=== PATIENT | male | born 1960 | race Caucasian/White ===

== ENCOUNTER 2019-06-11 16:59 | Emergency (ER) | payer SELFPAY ==
[~2019-06-11] VITALS: Ht 185.4 cm; Wt 80.7 kg
[2019-06-11] MEDS ORDERED: SODIUM CHLORIDE 0.9% 1000ML 1,000 ML IV SCH (18:45)
[2019-06-11] MEDS ORDERED: DICYCLOMINE HCL 20 MG TAB PO ONE (18:45)
[2019-06-11] MEDS ORDERED: SODIUM CHLORIDE 0.9% 1000ML 1,000 ML ONE (18:53)
[2019-06-11] MEDS ORDERED: DICYCLOMINE HCL 10 MG CAP ONE (18:53)
[2019-06-11] MEDS ORDERED: SODIUM CHLORIDE 0.9% 50ML 50 ML ONE (19:51)
[2019-06-11] MEDS ORDERED: IOPAMIDOL 370 MG/ML 200 ML INFUS..BTL INJ ONE (19:51)
--- NOTE | 2019-06-11 20:12 | Diagnostic Imaging Report ---
EXAM: CT Abdomen and Pelvis WITH contrast INDICATION: Abdominal pain ^[id number] ^193 COMPARISON: None. TECHNIQUE: Abdomen and pelvis were scanned utilizing a multidetector helical scanner from the lung base to the pubic symphysis after administration of IV contrast. Coronal and sagittal reformations were obtained. Routine protocol was performed. Scan was performed when during portal venous phase. Dose modulation, iterative reconstruction, and/or weight based adjustment of the mA/kV was utilized to reduce the radiation dose to as low as reasonably achievable. IV CONTRAST: 100 mL of Isovue-370 ORAL CONTRAST: None RADIATION DOSE: Total DLP: 578.49 mGy*cm Estimated effective dose: (DLP x 0.015 x size factor) mSv COMPLICATIONS: None FINDINGS: LINES and TUBES: None. LOWER THORAX: Lung bases are clear. Small bilateral [place] diaphragmatic hernias. Heart size normal. HEPATOBILIARY: Diffuse low density of the liver which may be seen with steatosis. No focal hepatic lesions. No biliary ductal dilation. GALLBLADDER: No radio-opaque stones or sludge. No wall thickening. SPLEEN: No splenomegaly. PANCREAS: No focal masses or ductal dilatation. ADRENALS: No adrenal nodules KIDNEYS/URETERS: Kidneys enhance symmetrically. No hydronephrosis. No cystic or solid mass lesions. No stones. GI TRACT: There is sigmoid diverticulosis with wall thickening and mild fat stranding adjacent to the mid sigmoid colon. No pneumoperitoneum or discrete fluid collection. Diverticulum of the third portion of the duodenum. Appendix is normal. PELVIC ORGANS/BLADDER: Urinary bladder unremarkable appearance. The prostate appears enlarged and indents the bladder base. No discrete abnormal mass or fluid collection in the pelvis. LYMPH NODES: No dominant lymph node mass is seen in the abdomen, retroperitoneum or pelvis. VESSELS: No aneurysm of the abdominal aorta. Scattered atherosclerotic plaque. IVC and portal system appear unremarkable. PERITONEUM / RETROPERITONEUM: No pneumoperitoneum or ascites. BONES: No acute or suspicious bony lesions. There is narrowing of the L5-S1 disc space with grade 1 spondylolisthesis of L5 on S1. SOFT TISSUES: Superficial surrounding soft tissue unremarkable. IMPRESSION: 1. Sigmoid diverticulosis with wall thickening. There is mild fat stranding adjacent to the mid sigmoid colon. No free air or fluid collection. Findings likely represent diverticulitis although the appearance may also represent inflammatory or infectious colitis. 2. Hepatic steatosis. 3. Enlarged prostate. Staff: Maylin Signed by: Dr. Delmer Carlisle M.D. on 06/11/2019 8:09 PM
[2019-06-11] MEDS ORDERED: ONDANSETRON HCL INJ 2MG/ML 2ML 2 MG/ML VIAL IV STA (20:44)
[2019-06-11] MEDS ORDERED: MORPHINE SULFATE 2 MG/ML SYR 1ML IV STA (20:44)
[2019-06-11] MEDS ORDERED: CIPROFLOXACIN 500 MG TAB PO SCH (20:45)
[2019-06-11] MEDS ORDERED: METRONIDAZOLE 500 MG TAB PO ONE (20:45)
[2019-06-11] MEDS ORDERED: ONDANSETRON HCL INJ 2MG/ML 2ML 2 MG/ML VIAL ONE (21:17)
[2019-06-11] MEDS ORDERED: CIPROFLOXACIN 500 MG TAB ONE (21:17)
[2019-06-11] MEDS ORDERED: MORPHINE SULFATE INJ 4 MG/ML INJ 1ML ONE (21:18)
[2019-06-11] MEDS ORDERED: FLAGYL500 MG PO (21:23)
[2019-06-11] MEDS ORDERED: CIPRO500 MG PO (21:24)
[2019-06-11] MEDS ORDERED: TYLENOL WITH C1 EACH PO (21:27)
[2019-06-11] MEDS ORDERED: ONDANSETRON ODT8 MG PO (21:28)
== END 2019-06-11 21:40 | disposition home or self-care (01) ==
LOC: FSED 16:59 → EDSEX 16:59 → FSED 21:40
DX: R10.32 Left lower quadrant pain (principal); R19.7 Diarrhea, unspecified; K57.32 Diverticulitis of large intestine without perforation or abscess without bleeding
CPT/HCPCS: 74177; 96374; 96375; 99284; J2270 ×2; J2405; J7030; Q9967

== ENCOUNTER 2019-06-26 13:26 | Emergency (ER) | payer SELFPAY ==
[~2019-06-26] VITALS: Ht 185.4 cm; Wt 77.1 kg
[~2019-06-26 13:26] MED LIST: CIPRO500 MG PO; FLAGYL500 MG PO; ONDANSETRON ODT8 MG PO; TYLENOL WITH C1 EACH PO
--- OUTSIDE RECORDS SUMMARY | 2019-06-26 13:29 | XMS REPORT ---
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 Allergies, Adverse Reactions, Alerts This patient has no known allergies or adverse reactions. Medications This patient has no known medications. Results Test Description Test Time Test Comments Text Results Atomic Results Result Comments CT ABD/PEL WITH CONTRAST-HOPD 2019-06-11 19:51:00 [place] [address] Patient Name: FAUSTINO DEGROOT MR #: [id number] : 1960 Age/Sex: 59/M Req #: [id number] [facility] Physician: Ordered by: WILDA LYONS MD Report #: [id number] Location: [facility] Room/Bed: Procedure: [id number] HOPD/CT ABD/PEL WITH CONTRAST-HOPD Exam Date: 06/11/19 Exam Time: 1931 REPORT STATUS: Signed EXAM: CT Abdomen and Pelvis WITH contrast INDICATION: Abdominal pain [id number] COMPARISON: None. TECHNIQUE: Abdomen and pelvis were scanned utilizing a multidetector helical scanner from the lung base to the pubic symphysis after administration of IV contrast. Coronal and sagittal reformations were obtained. Routine protocol was performed. Scan was performed when during portal venous phase. Dose modulation, iterative reconstruction, and/or weight based adjustment of the mA/kV was utilized to reduce the radiation dose to as low as reasonably achievable. IV CONTRAST: 100 mL of Isovue-370 ORAL CONTRAST: None RADIATION DOSE: Total DLP: 578.49 mGy*cm Estimated effective dose: (DLP x 0.015 x size factor) mSv COMPLICATIONS: None FINDINGS: LINES and TUBES: None. LOWER THORAX: Lung bases are clear. Small bilateral [place] diaphragmatic hernias. Heart size normal. HEPATOBILIARY: Diffuse low density of the liver which may be seen with steatosis. No focal hepatic lesions. No biliary ductal dilation. GALLBLADDER: No radio-opaque stones or sludge. No wall thickening. SPLEEN: No splenomegaly. PANCREAS: No focal masses or ductal dilatation. ADRENALS: No adrenal nodules KIDNEYS/URETERS: Kidneys enhance symmetrically. No hydronephrosis. No cystic or solid mass lesions. No stones. GI TRACT: There is sigmoid diverticulosis with wall thickening and mild fat stranding adjacent to the mid sigmoid colon. No pneumoperitoneum or discrete fluid collection. Diverticulum of the third portion of the duodenum. Appendix is normal. PELVIC ORGANS/BLADDER: Urinary bladder unremarkable appearance. The prostate appears enlarged and indents the bladder base. No discrete abnormal mass or fluid collection in the pelvis. LYMPH NODES: No dominant lymph node mass is seen in the abdomen, retroperitoneum or pelvis. VESSELS: No aneurysm of the abdominal aorta. Scattered atherosclerotic plaque. IVC and portal system appear unremarkable. PERITONEUM / RETROPERITONEUM: No pneumoperitoneum or ascites. BONES: No acute or suspicious bony lesions. There is narrowing of the L5-S1 disc space with grade 1 spondylolisthesis of L5 on S1. SOFT TISSUES: Superficial surrounding soft tissue unremarkable. IMPRESSION: 1. Sigmoid diverticulosis with wall thickening. There is mild fat stranding adjacent to the mid sigmoid colon. No free air or fluid collection. Findings likely represent diverticulitis although the appearance may also represent inflammatory or infectious colitis. 2. Hepatic steatosis. 3. Enlarged prostate. Staff: Maylin Signed by: Dr. Duyen Sampson M.D. on 06/11/2019 8:09 PM Dictated By: DUYEN SAMPSON MD 08 Transcribed By: SHANELLE on 06/11/192008 COPY TO: WILDA LYONS MD
[2019-06-26] MEDS ORDERED: NAPROSYN500 MG PO (13:52)
[2019-06-26] MEDS ORDERED: ULTRAM 50MG50 MG PO (13:52)
[2019-06-26] MEDS ORDERED: VALTREX500 MG PO (13:52)
== END 2019-06-26 14:20 | disposition home or self-care (01) ==
LOC: FSED 13:26
DX: B02.9 Zoster without complications (principal)
CPT/HCPCS: 99282